=== PATIENT | female | born 1980 | race American Indian/Alaskan Native ===

== ENCOUNTER 2016-11-15 19:47 | Emergency (ER) | payer SELFPAY ==
[2016-11-15 20:49] VITALS: BP 114/82
[2016-11-15 21:12] LABS: Basophils % (Auto) 0.9 % (0.0-1.8); Eosinophils % (Auto) 5.1 % (0.0-4.3); Hematocrit 39.9 % (30.3-42.9); Mean Corpuscular HGB Conc 33 % (30-34); Mean Corpuscular Hemoglobin 29 pg (28-32); Mean Corpuscular Volume 91 fl (79-97); Platelet Count 309 K/mm3 (140-440); Red Blood Count 4.41 M/mm3 (3.65-5.03); Red Cell Distribution Width 13.7 % (13.2-15.2); White Blood Count 8.7 K/mm3 (4.5-11.0)
[2016-11-15 21:33] LABS: Bacteria,Urine 1+ /HPF (Negative); Bilirubin,Urine NEG (Negative); Blood,Urine MOD (Negative); Ketones,Urine NEG (Negative); Leukocyte Esterase,Urine NEG (Negative); Mucus,Urine 2+ /HPF; Nitrite,Urine NEG (Negative); Protein,Urine <15 mg/dL mg/dL (Negative)
--- NOTE | 2016-11-20 16:48 | ED Elopement Review ---
ED Pt Elopement review - Results review Lab results: Laboratory Tests 11/15/16 11/15/16 11/15/16 20:58 20:58 21:00 WBC 8.7 RBC 4.41 Hgb 13.0 Hct 39.9 MCV 91 MCH 29 MCHC 33 RDW 13.7 Plt Count 309 Lymph % (Auto) 33.6 [place] % (Auto) 6.9 Eos % (Auto) 5.1 H Baso % (Auto) 0.9 Lymph # 2.9 [place] # 0.6 Eos # 0.4 Baso # 0.1 Seg Neutrophils % 53.5 Seg Neutrophils # 4.7 HCG, Qual Negative Urine Color Urine Turbidity Urine pH Ur Specific [place] Urine Protein Urine Glucose (UA) Urine Ketones Urine Blood Urine Nitrite Urine Bilirubin Urine Urobilinogen Ur Leukocyte Esterase Urine WBC (Auto) Urine RBC (Auto) U Epithel Cells (Auto) Urine Bacteria (Auto) Calcium Oxalate Crystal Hyaline Casts Urine Mucus Blood Type AB POSITIVE Antibody Screen TNR ROSARIO Antibody Screen Negative 11/15/16 21:14 WBC RBC Hgb Hct MCV MCH MCHC RDW Plt Count Lymph % (Auto) [place] % (Auto) Eos % (Auto) Baso % (Auto) Lymph # [place] # Eos # Baso # Seg Neutrophils % Seg Neutrophils # HCG, Qual Urine Color Yellow Urine Turbidity Clear Urine pH 5.0 Ur Specific [place] 1.030 Urine Protein <15 mg/dl Urine Glucose (UA) Neg Urine Ketones Neg Urine Blood Mod Urine Nitrite Neg Urine Bilirubin Neg Urine Urobilinogen 2.0 Ur Leukocyte Esterase Neg Urine WBC (Auto) 3.0 Urine RBC (Auto) 7.0 U Epithel Cells (Auto) 1.0 Urine Bacteria (Auto) 1+ Calcium Oxalate Crystal 2+ Hyaline Casts 1 Urine Mucus 2+ Blood Type Antibody Screen ROSARIO Antibody Screen - Call Back decision Pt Call Back Decision: No action required
== END 2016-11-15 22:30 | disposition left against medical advice (07) ==
LOC: ED 19:47
DX: R53.1 Weakness (principal); Z53.21 Procedure and treatment not carried out due to patient leaving prior to being seen by health care provider
CPT/HCPCS: 36415; 81001; 84703; 85025; 86850; 86900; 86901